=== PATIENT | female | born 1990 | race Caucasian/White ===

== ENCOUNTER 2017-08-07 16:06 | Emergency (ER) | payer SELFPAY ==
[~2017-08-07] VITALS: Ht 167.6 cm; Wt 52.9 kg
[2017-08-07 16:10] VITALS: BP 137/84; PULSE 88; RESP 16; TEMP 98.1; O2SAT 100
[2017-08-07] MEDS ORDERED: VALT500T PO (16:30)
[2017-08-07] MEDS ORDERED: PRIL20TA2 PO (16:30)
[2017-08-07] MEDS ORDERED: DIFL150T PO (17:15)
--- NOTE | 2017-08-07 17:16 | PD ---
HPI Chief Complaint: Skin Problem Time Seen by Provider: 16:51 Travel History International Travel<30 days: No Contact w/Intl Traveler<30days: No Traveled to known affect area: No History of Present Illness HPI 27 -year-old female here with skin irritation to the groin/external labia/anus times one week. She denies vaginal discharge, vaginal lesions, dysuria, abdominal pain. She believes it may be irritation due to changing soaps and detergents. No fever or chills. No concern for STD. PFSH Past Medical History Medical History: Denies Significant Hx Medical other: Yes (HSV1) Immunizations Current: Yes (tDAP) Shingles: Yes Tetanus Vaccination: < 5 Years Influenza Vaccination: Yes ?: Not LMP: 07/27/17 Past Surgical History Oral Surgery: Yes (WISDOM TEETH) Social History Alcohol Use: Yes (SOCIALLY) Tobacco Use: No Substance Use: No Allergies-Medications (Allergen,Severity, Reaction): Coded Allergies: benzoyl peroxide (Verified Allergy, Unknown, 08/07/17) Reported Meds & Prescriptions Reported Meds & Active Scripts Active Reported Prilosec (Omeprazole Magnesium) 20 Mg Tab Unknown Dose PO BID Valtrex (Valacyclovir HCl) 500 Mg Tab 500 Mg PO DAILY Review of Systems Except as stated in HPI: all other systems reviewed are Neg Physical Exam Narrative GENERAL: Alert female SKIN: Warm and dry. HEAD: Normocephalic. EYES:No injection or drainage. CARDIOVASCULAR: Regular rate and rhythm without murmurs, gallops, or rubs. RESPIRATORY: Breath sounds equal bilaterally. No accessory muscle use. : Normal-appearing external genitalia. External exam only. Mild erythema noted to the labia majora and skin surrounding the anus. No open lesions. Small amount of whitish discharge from vagina. GASTROINTESTINAL: Abdomen soft, non-tender, nondistended. Data Data Last Documented VS Vital Signs Date Time Temp Pulse Resp B/P (MAP) Pulse Ox O2 Delivery O2 Flow Rate FiO2 08/07/17 16:10 98.1 88 16 137/84 (101) 100 MDM Medical Decision Making Medical Screen Exam Complete: Yes Emergency Medical Condition: Yes Differential Diagnosis Contact dermatitis, irritant dermatitis, vulvovaginal candidiasis Narrative Course male dictation times one week. On exam she is very mild erythema to the external the majora and skin surrounding the anus. Symptoms were very mild. She does have small amount of noticeable to this discharge. She reports similar symptoms with vaginal yeast infection. Patient be given one dose of Diflucan. She is instructed to use hypoallergenic vaginal soap and a follow-up with her [employer]. Diagnosis Primary Impression: Perirectal skin irritation Referrals: Vending Technician Additional Instructions: Follow-up with her [employer] Scripts Fluconazole (Diflucan) 150 Mg Tab 150 MG PO ONCE for Infection, #1 TAB 0 Refills Prov: Natasha Adler 08/07/17 Disposition: 01 DISCHARGE HOME Condition: Stable Natasha Adler Aug 07, 2017 17:16
== END 2017-08-07 17:29 | disposition home or self-care (01) ==
LOC: PHED 16:06
DX: K62.89 Other specified diseases of anus and rectum (principal)
CPT/HCPCS: 99283